=== PATIENT | female | born 1985 | race African-American/Black ===

== ENCOUNTER → 2019-02-10 | Outpatient (CLI) | payer BC ==
--- NOTE | 2019-02-10 15:42 | RAD ---
DATE: 02/10/2019 EXAM: MAMMO DAVE RODRÍGUEZ, BREAST LEFT HISTORY: Dimpling of the skin above the left nipple in the past 2 weeks. COMPARISON: None. This exam is the baseline. This study was interpreted with the benefit of Computerized Aided Detection (CAD). Breast Density: HETERO The breast parenchyma is heterogenously dense, which could reduce sensitivity of mammography. Breast parenchyma level C. FINDINGS: No suspicious calcifications, masses, or distortion. No suspicious findings appear to the left nipple. Limited left breast ultrasound examination superior to the left nipple was performed. No mass or cyst identified. No suspicious finding. IMPRESSION: Unremarkable BI-RADS CATEGORY: 2 BENIGN FINDING(S) RECOMMENDED FOLLOW-UP: CLIN FOLLOW UP IMAGING CLINICALLY INDICATED. Clinical management is recommended in determining need for biopsy or other follow-up assessment. PQRS compliance statement: Patient information was entered into a reminder system with a target due date for the next mammogram. Mammography is a sensitive method for finding small breast cancers, but it does not detect them all and is not a substitute for careful clinical examination. A negative mammogram does not negate a clinically suspicious finding and should not result in delay in biopsying a clinically suspicious abnormality. "Our facility is accredited by the [employer] Mammography Program."
== END | disposition home or self-care (01) ==
LOC: MAMMO 13:56
PROVIDERS: ATTEND Obstetrics & Gynecology
DX: Q83.9 Congenital malformation of breast, unspecified (principal)
CPT/HCPCS: 76641; 77066; G0279; 77062